=== PATIENT | male | born 1985 | race Caucasian/White ===

== ENCOUNTER 2017-09-15 17:06 | Emergency (ER) | payer BC ==
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
[2017-09-15 20:42] LABS: ABSOLUTE LYMPHOCYTES (AUTO) 1.5 10^3/uL (0.5-4.7); ABSOLUTE MONOCYTES (AUTO) 0.5 10^3/uL (0.1-1.4); ABSOLUTE NEUT (AUTO) 11.2 10^3/uL (1.7-8.2); BASOPHILS % (AUTO) 0.3 % (0-2); EOSINOPHILS % (AUTO) 0.2 % (0-6); HEMATOCRIT 44.3 % (37.9-51.0); HEMOGLOBIN 15.5 g/dL (13.5-17.0); LYMPHOCYTES % (AUTO) 11.1 % (13-45); MEAN CORPUSCULAR HEMOGLOBIN 29.7 pg (27.0-33.4); MEAN CORPUSCULAR HGB CONC 34.9 g/dL (32.0-36.0); MEAN CORPUSCULAR VOLUME 85 fl (80-97); MONOCYTES % (AUTO) 3.5 % (3-13); PLATELET COUNT 234 10^3/uL (150-450); RED CELL DISTRIBUTION WIDTH 13.1 % (11.5-14.0); SEGMENTED NEUTROPHILS % (AUTO) 84.9 % (42-78); TOTAL CELLS COUNTED % (AUTO) 100 %; WHITE BLOOD COUNT 13.2 10^3/uL (4.0-10.5)
[2017-09-15 21:02] LABS: ANION GAP 11 (5-19); BLOOD UREA NITROGEN 14 mg/dL (7-20); CALCIUM 10.5 mg/dL (8.4-10.2); CARBON DIOXIDE 26 mmol/L (22-30); CHLORIDE 104 mmol/L (98-107); GLUCOSE 103 mg/dL (75-110); MAGNESIUM 1.8 mg/dL (1.6-2.3); POTASSIUM 4.3 mmol/L (3.6-5.0); SODIUM 140.5 mmol/L (137-145)
[2017-09-15 21:10] VITALS: BP 143/95
--- NOTE | 2017-09-16 08:12 | EKG REPORT ---
SEVERITY:- ABNORMAL ECG - SINUS RHYTHM VENTRICULAR BIGEMINY BORDERLINE R WAVE PROGRESSION, ANTERIOR LEADS : Confirmed by: Gorge Bauer MD 16-Sep-2017 08:11:51
== END 2017-09-15 21:17 | disposition home or self-care (01) ==
LOC: ER 17:06
DX: R55 Syncope and collapse (principal); Z86.711 Personal history of pulmonary embolism
CPT/HCPCS: 36415; 80048; 83735; 85025; 93005; 93010; 99284

== ENCOUNTER 2018-08-17 01:13 | Emergency (ER) | payer BC ==
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
[2018-08-17 03:58] LABS: ABSOLUTE EOSINOPHILS # (AUTO) 0.1 10^3/uL (0.0-0.6); ABSOLUTE LYMPHOCYTES (AUTO) 2.1 10^3/uL (0.5-4.7); ABSOLUTE MONOCYTES (AUTO) 0.6 10^3/uL (0.1-1.4); BASOPHILS % (AUTO) 0.5 % (0-2); HEMATOCRIT 43.4 % (37.9-51.0); HEMOGLOBIN 15.2 g/dL (13.5-17.0); LYMPHOCYTES % (AUTO) 24.1 % (13-45); MEAN CORPUSCULAR HEMOGLOBIN 29.7 pg (27.0-33.4); MEAN CORPUSCULAR HGB CONC 35.1 g/dL (32.0-36.0); MEAN CORPUSCULAR VOLUME 85 fl (80-97); MONOCYTES % (AUTO) 6.4 % (3-13); PLATELET COUNT 218 10^3/uL (150-450); RED BLOOD COUNT 5.14 10^6/uL (4.35-5.55); RED CELL DISTRIBUTION WIDTH 12.8 % (11.5-14.0); TOTAL CELLS COUNTED % (AUTO) 100 %; WHITE BLOOD COUNT 8.8 10^3/uL (4.0-10.5)
[2018-08-17 04:08] LABS: ALANINE AMINOTRANSFERASE 14 U/L (21-72); ALBUMIN 4.4 g/dL (3.5-5.0); ALKALINE PHOSPHATASE 73 U/L (38-126); ANION GAP 11 (5-19); ASPARTATE AMINO TRANSFERASE 18 U/L (17-59); BILIRUBIN,DIRECT 0.1 mg/dL (0.0-0.4); BILIRUBIN,TOTAL 1.1 mg/dL (0.2-1.3); BLOOD UREA NITROGEN 17 mg/dL (7-20); CARBON DIOXIDE 27 mmol/L (22-30); CHLORIDE 104 mmol/L (98-107); GLUCOSE 96 mg/dL (75-110); POTASSIUM 4.1 mmol/L (3.6-5.0); TOTAL PROTEIN 7.1 g/dL (6.3-8.2)
[2018-08-17 04:09] LABS: ACETAMINOPHEN < 10 ug/mL (10-30); ALCOHOL < 10 mg/dL (NONE DETECTED); SALICYLATE < 1.0 mg/dL (2.0-20.0)
[2018-08-17 07:42] LABS: APPEARANCE,URINE CLEAR; BILIRUBIN,URINE NEGATIVE (NEGATIVE); COLOR,URINE YELLOW; GLUCOSE, URINE NEGATIVE (NEGATIVE); KETONES,URINE NEGATIVE (NEGATIVE); LEUKOCYTE ESTERASE,URINE NEGATIVE (NEGATIVE); NITRITE,URINE NEGATIVE (NEGATIVE); PROTEIN,URINE NEGATIVE (NEGATIVE); URINE SPECIFIC GRAVITY 1.024
[2018-08-17 07:57] LABS: URINE AMPHETAMINES SCREEN NEGATIVE; URINE BARBITURATES SCREEN NEGATIVE; URINE BENZODIAZEPINES SCREEN NEGATIVE; URINE COCAINE SCREEN NEGATIVE; URINE MARIJUANA (THC) SCREEN NEGATIVE; URINE METHADONE SCREEN NEGATIVE; URINE PHENCYCLIDINE SCREEN NEGATIVE
--- NOTE | 2018-08-17 10:33 | ER Document Report ---
Doctor's Note Notes: 08/17/18 10:31 Patient seen and evaluated by myself. Patient is a 33-year-old male who presents the emergency department with complaints of suicidal ideations. Patient was sitting in a car with a loaded gun contemplating whether or not to shoot himself. Patient's mom states that this has been going on for the last 2 months after his divorce. Patient has been medically cleared. No issues per nurse overnight. Patient has no complaints in the room. Continues to feel suicidal. Behavioral health consulted. Waiting there what recommendations. 08/21/18 18:11 Behavioral health trying to get patient into [facility].
--- NOTE | 2018-08-17 14:20 | EKG REPORT ---
SEVERITY:- BORDERLINE ECG - SINUS RHYTHM PROBABLE LEFT ATRIAL ABNORMALITY ST ELEV, PROBABLE NORMAL EARLY REPOL PATTERN : Confirmed by: Colette Rivera MD 17-Aug-2018 14:19:38
--- NOTE | 2018-08-17 18:30 | PSYCHOLOGICAL NOTE ---
Psych Note - Psych Note Psych Note: Impression/Plan: Recommendation is to IVC for risk of harm to self as patient endorses continued SI with a plan. Plan to hold overnight for medication stabilization and re- evaluation at a later time. Medication recommendations as per psychiatric provider, Dr. Adame are as foll ows: Zyprexa 5mg BID Cogentin 1mg QD
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
[2018-08-18] MEDS ORDERED: BENZTROPINE MESYLATE 1 MG TABLET PO SCH (10:15)
[2018-08-18] MEDS ORDERED: OLANZAPINE 5 MG TABLET PO SCH (10:15)
[2018-08-18 15:26] VITALS: BP 106/71
== END 2018-08-18 15:52 ==
LOC: ER 01:13
DX: R45.851 Suicidal ideations (principal); F32.9 Major depressive disorder, single episode, unspecified; Z63.5 Disruption of family by separation and divorce; I10 Essential (primary) hypertension; Z87.820 Personal history of traumatic brain injury; Z75.1 Person awaiting admission to adequate facility elsewhere
CPT/HCPCS: 36415; 80053; 80307; 81001; 85025; 93005; 93010; 99285

== ENCOUNTER 2018-09-09 22:35 | Emergency (ER) | payer BC ==
[2018-09-10] MEDS ORDERED: METOCLOPRAMIDE HCL INJ/PF 10 MG/2 ML SDV IV ONE (00:55)
[2018-09-10] MEDS ORDERED: NORMAL SALINE 1000 ML 1,000 ML IV ONE (00:55)
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
[2018-09-10 01:37] LABS: AMORPHOUS SEDIMENT,URINE TRACE /HPF; APPEARANCE,URINE SLIGHTLY-CLOUDY; BILIRUBIN,URINE NEGATIVE (NEGATIVE); COLOR,URINE YELLOW; GLUCOSE, URINE NEGATIVE (NEGATIVE); KETONES,URINE NEGATIVE (NEGATIVE); LEUKOCYTE ESTERASE,URINE NEGATIVE (NEGATIVE); NITRITE,URINE NEGATIVE (NEGATIVE); PROTEIN,URINE NEGATIVE (NEGATIVE)
[2018-09-10 01:41] LABS: ALANINE AMINOTRANSFERASE 29 U/L (21-72); ALBUMIN 4.8 g/dL (3.5-5.0); ALKALINE PHOSPHATASE 64 U/L (38-126); ANION GAP 10 (5-19); ASPARTATE AMINO TRANSFERASE 20 U/L (17-59); BILIRUBIN,DIRECT 0.1 mg/dL (0.0-0.4); BLOOD UREA NITROGEN 16 mg/dL (7-20); CARBON DIOXIDE 28 mmol/L (22-30); CHLORIDE 100 mmol/L (98-107); GLUCOSE 92 mg/dL (75-110); LIPASE 51.6 U/L (23-300); POTASSIUM 4.1 mmol/L (3.6-5.0); SODIUM 137.8 mmol/L (137-145)
[2018-09-10] MEDS ORDERED: METOCLOPRAMIDE HCL INJ/PF 10 MG/2 ML SDV ONE (03:18)
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
--- NOTE | 2018-09-10 05:25 | RADIOLOGY REPORT (SQ) ---
EXAM DESCRIPTION: CT HEAD ANGIOGRAPHY WITHOUT THEN WITH IV CONTRAST COMPLETED DATE/TME: 09/10/2018 03:58 CLINICAL HISTORY: 33 years, Male, headache COMPARISON: None. TECHNIQUE: Contiguous axial images obtained through the head during the infusion of IV contrast. Reformatted images obtained. 3-D MIP reformatted images obtained. This exam was performed according to our department optimization program which includes automated exposure control, adjustment of the mA and/or kv according to patient size and/or use of iterative reconstruction technique. FINDINGS: CTA BRAIN: Distal Internal carotid arteries: Normal course, caliber, and contour without atherosclerosis or stenosis [place]: Standard configuration without proximal stenosis or aneurysm. Anterior cerebral arteries: No focal stenosis or aneurysm. Middle cerebral arteries: No focal stenosis or aneurysm Posterior cerebral arteries: No focal stenosis or aneurysm. Vertebrobasilar circulation: The intradural vertebral arteries, basilar artery, and all cerebellar branches are patent without focal stenosis or aneurysm. Veins: The major dural venous sinus, cortical and deep cerebral veins are patent. Paranasal sinuses: Clear. IMPRESSION: No major branch occlusion, flow limiting stenosis, or aneurysm is identified intracranially.
[2018-09-10 05:56] VITALS: BP 129/71
== END 2018-09-10 05:56 | disposition home or self-care (01) ==
LOC: ER 22:35
DX: R51 Headache (principal); R11.2 Nausea with vomiting, unspecified; R42 Dizziness and giddiness; I10 Essential (primary) hypertension
CPT/HCPCS: 99284; 96361; 96374; 36415; 83690; 80053; 81001; 70496; J2765; J7030

== ENCOUNTER 2019-04-07 10:58 | Day surgery (SDC) | payer BC ==
[~2019-04-07 10:58] MED LIST: LIDOCAINE 0.5% INJ-PF (5 MG/ML) 50 ML SDV SUBCUT PRN
[2019-04-07] MEDS ORDERED: PROPOFOL INJ 200 MG/20 ML VIAL IV ONE (12:26)
[2019-04-07] MEDS ORDERED: LIDOCAINE 2% INJ-PF (100 MG/5 ML) SYRINGE ONE (12:26)
[2019-04-07] MEDS ORDERED: LACTATED RINGERS 1000 ML IV PRN (13:17)
[2019-04-07] MEDS ORDERED: PROMETHAZINE HCL INJ 25 MG/1 ML VIAL IM PRN (14:08)
[2019-04-07] MEDS ORDERED: ACETAMINOPHEN 325 MG TABLET PO PRN (14:08)
[2019-04-07] MEDS ORDERED: SIMETHICONE 80 MG TAB.CHEW PO PRN (14:08)
[2019-04-07] MEDS ORDERED: DEXTROSE 5%-1/2 NORMAL SALINE 1,000 ML IV PRN (14:14)
--- NOTE | 2019-04-07 14:55 | Operative Report ---
Operative Report DATE OF SURGERY: 04/07/19 Operative Report: The risks, benefits and alternatives are discussed with the patient in detail patient is taken to the OR Propofol medication is provided the esophagus , stomach and duodenum are examined retroflexion is performed PREOPERATIVE DIAGNOSIS: nausea and vomiting POSTOPERATIVE DIAGNOSIS: gastritis, biopsy to rule out H.Pylori OPERATION: EGD with biopsy SURGEON: TAL MCDONALD ANESTHESIA: LMAC TISSUE REMOVED OR ALTERED: as noted above COMPLICATIONS: none ESTIMATED BLOOD LOSS: none INTRAOPERATIVE FINDINGS: as noted above PROCEDURE: Patient tolerated her procedure well no post procedure complications are noted discharge diet : regular Discharge activity: regular Discharge date: 04/07/19 follow up in 2-3 weeks patient is instructed to call the office or go to ED if any problems wait on biopsy
[2019-04-07 16:03] VITALS: BP 148/89
== END 2019-04-07 14:45 | disposition home or self-care (01) ==
LOC: OROUT 10:58
PROVIDERS: ATTEND Internal Medicine Gastroenterology
DX: K29.50 Unspecified chronic gastritis without bleeding (principal); I10 Essential (primary) hypertension; Z79.899 Other long term (current) drug therapy
CPT/HCPCS: 88342 ×2; 88305 ×2; 00731; J2001; J2704; 731

== ENCOUNTER → 2019-05-13 | Outpatient (CLI) | payer BC ==
--- NOTE | 2019-05-13 15:20 | RADIOLOGY REPORT (SQ) ---
EXAM DESCRIPTION: NM HIDA SCAN WITH CCK COMPLETED DATE/TIME: 05/13/2019 2:51 pm REASON FOR STUDY: BILIOUS VOMITING (R11.14) R11.14 BILIOUS VOMITING COMPARISON: Right upper quadrant ultrasound 05/13/2019 RADIONUCLIDE AND DOSE: DOSAGE RADIONUCLIDE: 5.3 millicuries Tc99m Mebrofenin. DOSAGE CCK: 1.7 micrograms. DOSAGE MORPHINE: Not required. The route of agent administration: Intravenous TECHNIQUE: Serial imaging right upper quadrant up to 60 minutes following injection of radionuclide. CCK injected after gallbladder visualized. LIMITATIONS: None. FINDINGS: LIVER: Normal visualization. INTRAHEPATIC BILE DUCTS: Normal visualization. COMMON BILE DUCT: Normal visualization. GALLBLADDER: Normal visualization. Calculated ejection fraction of 29%. Normal range is greater th an 35%. PHYSICAL RESPONSE: Patients presenting complaint was reproduced. OTHER: No other significant finding. IMPRESSION: No scintigraphic evidence of cystic duct or common duct obstruction. IV CCK reproduced the patient's symptoms, depressed gallbladder ejection fraction. TECHNICAL DOCUMENTATION: JOB ID: [id number] [employer]- All Rights Reserved Reading location - IP/workstation name: [email or web address]
--- NOTE | 2019-05-13 15:23 | RADIOLOGY REPORT (SQ) ---
EXAM DESCRIPTION: U/S ABDOMEN LTD W/DOPPLER COMPLETED DATE/TIME: 05/13/2019 12:03 pm REASON FOR STUDY: BILIOUS VOMITING (R11.14) R11.14 BILIOUS VOMITING COMPARISON: None. TECHNIQUE: Dynamic and static grayscale images acquired of the abdomen and recorded on PACS. Additio nal selected color Doppler and spectral images recorded. LIMITATIONS: None. FINDINGS: PANCREAS: The head and body of the pancreas are normal echogenicity. The tail of the bear creas is suboptimally visualized. LIVER: The liver measures 14.4 cm in length, normal size. No masses. Echotexture normal. LIVER VASCULATURE: Normal directional flow of the main portal vein and hepatic veins. GALLBLADDER: A nonmobile, non-shadowing 8 x 6 x 6 mm soft tissue density within the gallbladder lume n suggest a polyp. The gallbladder wall measures 1.3 mm, normal wall thickness. No pericholecystic fl uid. ULTRASOUND-DETECTED LE'S SIGN: Negative. INTRAHEPATIC DUCTS AND COMMON DUCT: CBD measures 3.2 mm in diameter, normal. The intrahepatic ducts normal caliber. No filling defects. INFERIOR VENA CAVA: Normal flow. AORTA: No aneurysm. RIGHT KIDNEY: The right kidney measures 11.5 x 5.0 x 4.9 cm, normal size. Normal echogenicity. No so lid or suspicious masses. No hydronephrosis. No calcifications. PERITONEAL AND RIGHT PLEURAL SPACE: No ascites or effusions. OTHER: No other significant findings. IMPRESSION: 1. A nonmobile, non-shadowing soft tissue density within the lumen of the gallbladder s uggest a polyp. 2. The tail of the pancreas is obscured by overlying bowel gas. 3. Examination is otherwise unremarkable sonographically. TECHNICAL DOCUMENTATION: JOB ID: [id number] [employer]- All Rights Reserved Reading location - IP/workstation name: [email or web address]
== END ==
LOC: RAD 11:30
PROVIDERS: ATTEND Internal Medicine Gastroenterology
DX: R11.14 Bilious vomiting (principal)
CPT/HCPCS: 76705; 93976; 78227; J2805; A9537; Q9969